=== PATIENT | male | born 1975 | race Caucasian/White ===

== ENCOUNTER 2018-05-25 11:34 | Emergency (ER) | payer SELFPAY ==
[2018-05-25] MEDS ORDERED: ONDANSETRON 4 MG/2 ML VIAL IVP ONE (12:03)
[2018-05-25] MEDS ORDERED: NS 1,000 ML IV ONE ×2 (12:03→12:04)
[2018-05-25] MEDS ORDERED: ALBUTEROL 3 ML DEYVIAL IH ONE (12:48)
--- NOTE | 2018-05-25 12:49 | EDPHY ---
H & P Time Seen by Provider: 05/25/18 12:09 HPI/ROS: CLINICAL IMPRESSION: Influenza, nausea and vomiting ASSESSMENT/PLAN: 42-year-old otherwise healthy male presents to the emergency department with 4 days of URI symptoms, nausea and vomiting. Patient was found to be influenza positive. Abdomen soft with no focal peritoneal findings and vital signs stable. No secondary signs of bacterial upper lower respiratory disease. No clinical concern for acute surgical abdomen. Patient received 2 L of fluid with significant improvement in his symptoms. After IV antiemetics he was able to tolerate water without difficulty. Mild wheezing on initial exam improved after albuterol neb and he was discharged with an albuterol inhaler He is being discharged with prescription for Zofran and cough suppressants. Encouraged PCP follow-up. Warning signs return to ED sooner alignment discharge DIFFERENTIAL DX: Differential includes but not limited to viral syndrome, gastroenteritis, influenza, dehydration, electrolyte imbalance ED PROCEDURES: See imaging and lab results below ED COURSE: Lab positive for influenza. Electrolytes normal. Patient reportedly feeling better after 2 L fluid. Will plan to discharge home with albuterol inhaler. CHIEF COMPLAINT: Cough, cold symptoms, fever, nausea and vomiting x4 days HPI: 42-year-old otherwise healthy male presents to the emergency department with 4 days of nausea, vomiting, diarrhea, URI symptoms, cough and fevers. Patient reports he has not been able to keep anything down and feels to very dehydrated. He denies abdominal pain. No dysuria or flank pain. No concern for STIs. He did not get a flu shot this year. He has not measured his fevers at home. He has been trying to take Tylenol and ibuprofen. No underlying history of asthma or pulmonary disease but he does state that he has been wheezing and having difficulty sleeping due to his cough. PMH: None reported Pertinent Past Surgical History: Noncontributory Family History: None reported Social History: Nonsmoker REVIEW OF SYSTEMS: All other systems negative Constitutional: Positive for fever, chills, myalgias an appetite change Eyes: No discharge, vision change ENT: Positive for sore throat congestion Cardiovascular: No chest pain, no palpitations. Respiratory: Positive for cough, no shortness of breath. Gastrointestinal: No abdominal pain, positive for vomiting, diarrhea. Genitourinary: No hematuria, dysuria, flank pain, pelvic pain Musculoskeletal: No back pain, joint swelling, joint pain, myalgias. Skin: No rashes, color change. Neurological: No headache, dizziness, weakness. PHYSICAL EXAM: General Appearance: Alert, oriented, appropriate, cooperative, NAD, well hydrated, non-toxic appearing, VSS, no hypoxia. HEENT: TMs are clear bilaterally no perforation or FB, no injection, no evidence of serous or mucopurulent otitis. Oropharynx clear is no erythema or exudates, no tonsillar hypertrophy or asymmetry. Dentition without abnormality. Eyes: PERRLA, no acute vision change, nystagmus, swelling, discharge, pain or photosensitivity. Conjunctiva pink, no pallor or injection Neck: Supple, nontender, no lymphadenopathy, no midline pain, FROM, no meningismus. Respiratory: There are no retractions, lungs are clear to auscultation. Cardiac: Regular rate and rhythm, no murmurs or gallops. Gastrointestinal: Abdomen is soft, nontender, bowel sounds normal, no masses/ hernia, no rigidity, guarding or focal peritoneal findings. Neurological: Alert and oriented x 3, CN 2-12 grossly intact, normal gait no ataxia, DTR's intact, normal sensation and strength Skin: Warm, dry, no rashes, no nodules on palpation. Musculoskeletal: Extremities are symmetrical, full range of motion, no tenderness, deformity, swelling, or erythema. Psychiatric: Patient is oriented X 3, there is no agitation. MEDICAL DECISION MAKING: Patient was seen independently. Secondary supervising physician at time of evaluation was Dr. Dick. Diagnosis: Influenza a, nausea vomiting and diarrhea. New, requires workup Summary: See Assessment and Plan for summary of ED visit Clinical lab tests: ordered / reviewed. Independent visualization of images, tracing, or specimens: Not obtained. Patient Progress: Improved. Smoking Status: Former smoker Constitutional: Initial Vital Signs Temperature (C) 37.3 C 12/19/18 11:43 Heart Rate 87 05/25/18 11:43 Respiratory Rate 16 05/25/18 11:43 Blood Pressure 135/84 H 05/25/18 11:43 O2 Sat (%) 96 05/25/18 11:43 O2 Delivery Mode Room Air Allergies/Adverse Reactions: egg [eggs] Allergy (Verified 05/25/18 11:43) Milk Containing Products [dairy] Allergy (Verified 08/05/15 10:00) peanut Allergy (Verified 08/05/15 10:00) wheat Allergy (Verified 08/05/15 10:00) Home Medications: Medication Instructions Recorded Albuterol Hfa Anes Only [Proair 2 puffs IH QID #1 mdi 05/25/18 Hfa Icu (*)] HYDROcodone/CHLORPHEN P-STIREX 5 ml PO HS PRN #50 [id number] 05/25/18 [Tussionex Pennkinetic Susp] Lexapro 05/25/18 Ondansetron Odt [Zofran Odt] 4 mg PO Q4PRN PRN #7 tab 05/25/18 MDM/Departure - MDM Medications Given: Discontinued Medications Albuterol (Proventil Neb) 3 ml IH EDNOW ONE Stop: 05/25/18 12:49 Last Admin: 05/25/18 13:05 Dose: 3 ml Sodium Chloride (Ns) 1,000 mls @ 0 mls/hr IV ONCE ONE PRN Reason: Wide Open Stop: 05/25/18 12:04 Last Admin: 05/25/18 12:13 Dose: 1,000 mls Sodium Chloride (Ns) 1,000 mls @ 0 mls/hr IV ONCE ONE PRN Reason: Wide Open Stop: 05/25/18 12:05 Last Admin: 05/25/18 12:14 Dose: 1,000 mls Ketorolac Tromethamine (Toradol) 15 mg IVP EDNOW ONE Stop: 05/25/18 13:01 Last Admin: 05/25/18 13:04 Dose: 15 mg Ondansetron HCl (Zofran) 4 mg IVP EDNOW ONE Stop: 05/25/18 12:04 Last Admin: 05/25/18 12:13 Dose: 4 mg - Depart Disposition: Home, Routine, Self-Care Clinical Impression: Influenza, Nausea and vomiting in adult Condition: Good Instructions: Influenza (ED), Acute Nausea and Vomiting (ED) Additional Instructions: DISCHARGE INSTRUCTIONS FROM YOUR DOCTOR Thank you for visiting our emergency department today. Please keep in mind that discharge from the emergency department does not mean that there is nothing wrong - it simply means that we have not identified an emergency condition that requires further evaluation or treatment in the hospital. You should always plan to follow up with primary care for re-evaluation of your condition in the next 2-3 days. If you have been referred to a specialist, please call as soon as possible (today or tomorrow) to schedule your follow up appointment at the appropriate time. Your influenza test was positive. Electrolytes and remainder of lab work was reassuring and normal. You are out of the window to take Tamiflu. We did give you prescription for an albuterol inhaler to use if needed for chest tightness and wheezing. We also gave a prescription for Zofran to use for nausea. Please stay well hydrated, advanced diet as tolerated. Please follow up with a primary care provider in the next 24-48 hours, if you do not have one a referral was given. Please return to the emergency department for worsening cough, shortness of breath, chest pain, inability to stay hydrated, or any other concern. People present with illnesses and injuries in different ways, and it is always possible that we have missed something. You may always return for re-evaluation if symptoms worsen or if they are not improving or if you develop new/different symptoms. Again, thank you for choosing our emergency department. We hope that you feel better. Prescriptions: Albuterol Hfa Anes Only [Proair Hfa Icu (*)] 2 puffs IH QID #1 mdi HYDROcodone/CHLORPHEN P-STIREX [Tussionex Pennkinetic Susp] 5 ml PO HS PRN #50 [id number] PRN Reason: Cough, Moderate Ondansetron Odt [Zofran Odt] 4 mg PO Q4PRN PRN #7 tab PRN Reason: Nausea/Vomiting, Can'T Take Po Referrals: NONE *PRIMARY CARE P,. [Primary Care Provider] - As per Instructions Zain Dominique DO [Doctor of Osteopathy] - As per Instructions
[2018-05-25] MEDS ORDERED: KETOROLAC 15 MG/1 ML SDV IVP ONE (13:00)
[2018-05-25] MEDS ORDERED: KETOROLAC 15 MG/1 ML SDV ONE (13:01)
[2018-05-25 13:39] VITALS: BP 138/67
== END 2018-05-25 13:35 | disposition home or self-care (01) ==
DX: J10.1 Influenza due to other identified influenza virus with other respiratory manifestations (principal); R11.2 Nausea with vomiting, unspecified
CPT/HCPCS: 82435-PO; 82565-PO; 82947-PO; 84132-PO; 84295-PO; 84520-PO; 85014-PO; 96374; J1885; J2405; J7613

== ENCOUNTER 2018-06-04 19:23 | Emergency (ER) | payer SELFPAY ==
--- NOTE | 2018-06-04 19:40 | EDPHY ---
H & P Time Seen by Provider: 06/04/18 19:30 HPI/ROS: CHIEF COMPLAINT: Lung pain HISTORY OF PRESENT ILLNESS: The patient is a 42-year-old male who presents emergency department with lung pain. The patient was diagnosed with influenza 2 weeks ago. He states he has previously had pleurisy like symptoms 2 years ago. This feels similar. The patient describes diffuse lung discomfort. He states it is uncomfortable when he breathes or moves. He describes it mildly sharp. He has no fevers or chills. No shortness of breath. No nausea or vomiting. No leg pain or swelling. REVIEW OF SYSTEMS: 10 systems were reveiwed and are negative with the exception of the elements mentioned in the history of present illness. Past Medical/Surgical History: Previous pleurisy, migraines, osteoporosis, DDD Past surgical history: Appendectomy Social history: Patient does not smoke Smoking Status: Former smoker Physical Exam: Vitals noted GENERAL: No acute distress, alert. HEENT: Eyes normal to inspection, normal pharynx, no signs of dehydration. NECK: Normal, supple. RESPIRATORY: Clear to auscultation bilaterally, no rales, rhonchi or wheezing. CVS: Regular rate and rhythm, no rubs, murmurs, or gallops. ABDOMEN: Soft, nontender, nondistended, no organomegaly. BACK: Normal to inspection, no CVA tenderness. SKIN: Normal color, no rash, warm, dry. No pallor. EXTREMITIES: No pedal edema, no calf tenderness, no Homans sign or cords, no joint swelling. NEURO/PSYCH: Alert and oriented, normal mood and affect, normal motor sensory exam. Constitutional: Initial Vital Signs Temperature (C) 37 C 06/04/18 19:26 Heart Rate 75 06/04/18 19:26 Respiratory Rate 18 06/04/18 19:26 Blood Pressure 135/88 H 06/04/18 19:26 O2 Sat (%) 97 06/04/18 19:26 O2 Delivery Mode Room Air Allergies/Adverse Reactions: egg [eggs] Allergy (Verified 05/25/18 11:43) Milk Containing Products [dairy] Allergy (Verified 08/05/15 10:00) peanut Allergy (Verified 08/05/15 10:00) wheat Allergy (Verified 08/05/15 10:00) Home Medications: Medication Instructions Recorded Albuterol Hfa Anes Only [Proair 2 puffs IH QID #1 mdi 05/25/18 Hfa Icu (*)] Lexapro 05/25/18 Hydrocodone/APAP 5/325 [[place] 1 - 2 tab PO Q4 #9 tab 06/04/18 5/325 (RX)] predniSONE 20 mg PO DAILY 4 Days tab 06/04/18 Medical Decision Making ED Course/Re-evaluation: In the emergency department discussed possible etiologies with the patient. I answered all his questions. Chest x-ray was ordered. Chest x-ray: Please refer the dictated report by Dr. Chowdhury. No acute disease noted. The patient was given prednisone 60 mg orally. He was given Vicodin 2 tablets orally and take-home pack of 4. Patient was given a prescription for prednisone as well as Vicodin. This will help with both his pain and his cough. He was given warnings prior to leaving. Will return with worsening symptoms. Differential Diagnosis: My differential includes but is not limited to pneumonia, bronchitis, influenza , pleurisy, abscess - Data Points Medications Given: Discontinued Medications Hydrocodone Bitart/Acetaminophen ([place] 5/325mg Prepack#6) 1 btl TAKEHOME EDNOW ONE Stop: 06/04/18 20:00 Last Admin: 06/04/18 20:09 Dose: 1 btl Prednisone (Prednisone) 60 mg PO EDNOW ONE Stop: 06/04/18 19:59 Last Admin: 06/04/18 20:08 Dose: 60 mg Departure - Departure Disposition: Home, Routine, Self-Care Clinical Impression: Pleurisy Condition: Good Instructions: Pleurisy (ED) Additional Instructions: Return with increasing pain, shortness of breath, persistent fever or any other concerns. The Vicodin will help with both your pain and you're cough. Take the entire course of prednisone for the next 5 days. Referrals: [facility], [Primary Care Provider] - 5-7 days, call for appt. Prescriptions: Hydrocodone/APAP 5/325 [[place] 5/325 (RX)] 1 - 2 tab PO Q4 #9 tab predniSONE 20 mg PO DAILY 4 Days tab
[2018-06-04] MEDS ORDERED: predniSONE 20 MG TAB PO ONE (19:58)
[2018-06-04] MEDS ORDERED: HYDROCOD/APAP 5/325 PREPACK#6 BTL TAKEHOME ONE (19:59)
[2018-06-04 20:36] VITALS: BP 132/81
== END 2018-06-04 20:37 | disposition home or self-care (01) ==
DX: R09.1 Pleurisy (principal); Z87.891 Personal history of nicotine dependence
CPT/HCPCS: J7512

== ENCOUNTER 2018-11-14 18:35 | Emergency (ER) | payer OTHER | END 2018-11-14 20:21 | disposition home or self-care (01) ==

== ENCOUNTER → 2018-11-22 | Outpatient (CLI) | payer MEDICAID | LOC: BMCIMAGING 16:28 ==

== ENCOUNTER → 2018-12-02 | Outpatient (CLI) | payer MEDICAID | LOC: FIMAGING 12:01 ==